=== PATIENT | male | born 2000 | race Caucasian/White ===

== ENCOUNTER 2022-04-23 09:10 | Outpatient (CLI) | payer BC, SELFPAY ==
[2022-04-23 14:10] LABS: Chloride* 104 mmol/L (96-114)
[2022-04-23 14:11] LABS: Potassium* 4.6 mmol/L (3.6-5.1); Sodium* 141 mmol/L (135-149)
[2022-04-23 14:13] LABS: Cholesterol* 201 mg/dL (90-199); Creatinine* 0.8 mg/dL (0.5-1.5); Estimated Glomerular Filt Rate 128 ml/min
[2022-04-23 14:14] LABS: Blood Urea Nitrogen* 16 mg/dL (5-24); Calcium* 9.7 mg/dL (8.4-10.6); Carbon Dioxide* 30 mmol/L (20-32); Glucose* 112 mg/dL (60-115); Triglycerides* 155 mg/dL (40-149)
[2022-04-23 14:15] LABS: HDL Cholesterol* 47 mg/dL (>=40); LDL Cholesterol Calculated 123 mg/dL (<100)
== END 2022-04-23 09:11 | disposition home or self-care (01) ==
PROVIDERS: PCP Family Medicine; Visit Provider Family Medicine
DX: Z00.00 Encounter for general adult medical examination without abnormal findings (principal); F41.1 Generalized anxiety disorder; Z13.6 Encounter for screening for cardiovascular disorders
CPT/HCPCS: 80048; 80061